=== PATIENT | female | born 1985 | race African-American/Black ===

== ENCOUNTER 2021-12-14 02:32 | Emergency (ER) | payer SELFPAY ==
[~2021-12-14] VITALS: Ht 188 cm; Wt 80.8 kg
[2021-12-14] MEDS ORDERED: KETOROLAC 30MG/ML VIAL IV STA (05:38)
[2021-12-14 06:43] LABS: BASOPHILS % 0.4 % (0.0-2.0); EOSINOPHILS % 0.9 % (0.0-5.0); HEMATOCRIT. 36.7 % (36.0-48.0); HEMOGLOBIN. 12.3 g/dL (12.0-16.0); LYMPHOCYTES % 18.3 % (20.0-50.0); MEAN CORPUSCULAR HEMOGLOBIN 31.9 pg (28.0-32.0); MEAN CORPUSCULAR VOLUME 94.9 fL (81.0-99.0); MEAN PLATELET VOLUME 9.3 fl (7.4-10.4); MONOCYTES % 11.9 % (2.0-8.0); NEUTROPHILS % 68.5 % (40.0-76.0); PLATELET 177 x1000/uL (130-400); RED BLOOD CELL COUNT 3.87 mill/uL (4.2-5.4)
[2021-12-14 06:47] LABS: CHLORIDE 107 mEq/L (98-107)
[2021-12-14] MEDS ORDERED: SODIUM CHLORIDE 0.9% 1,000 ML IV ONE (08:15)
[2021-12-14] MEDS ORDERED: METHOCARBAMOL 750MG TABLET PO SCH (08:15)
[2021-12-14] MEDS ORDERED: LIDOCAINE 5% PATCH TOP SCH (09:00)
[2021-12-14] MEDS ORDERED: KETOROLAC 30MG/ML VIAL IV SCH (09:00)
[2021-12-14 10:23] VITALS: BP 119/77
[2021-12-14] MEDS ORDERED: METH-653 MT (10:25)
[2021-12-14] MEDS ORDERED: LIDO1ADH23 TP (10:25)
[2021-12-14] MEDS ORDERED: IBUP-2028 MT (10:25)
[2021-12-14] MEDS ORDERED: TOPUD PO (10:25)
== END 2021-12-14 10:50 | disposition home or self-care (01) ==
LOC: ER 02:32
DX: M62.838 Other muscle spasm (principal); Z98.890 Other specified postprocedural states; Z20.822 Contact with and (suspected) exposure to COVID-19
CPT/HCPCS: 36415; 80053; 85025; 87426; 87804; 93005; 96361; 96374; 99284; C9803; J1885; J7030